=== PATIENT | female | born 1945 | race Caucasian/White ===

== ENCOUNTER 2025-02-06 04:44 | Emergency (ER) | payer OTHER, SELFPAY ==
--- OUTSIDE RECORDS SUMMARY | 2025-02-06 04:47 | XMS REPORT | Continuity of Care Document ---
Author Name Unknown Address [address] [facility] [address] [place] [address] [facility] [place] Address [address] [facility] [address] [place] [address] Care Team Providers Care Dispatcher Radioactive Waste Disposal Name Role Phone AURE WOOD Primary Care Physician UnavailAURE Rushing Attending Clinician Unavailable Aure Fung Attending Clinician [phone] SKYLAR GARCIA Attending Clinician Shelly De La Torre DO Attending Clinician [phone] Rosaura Altamirano RN Attending Clinician UnaARIANE Clayton Attending Clinician Unavailable SHELLY ACOSTA Attending Clinician UnavailSHELLY Kwan Attending Clinician Unavailab Domi GARNICA, Tania Fields Attending Clinician Unavailcameron ble Doctor Unassigned, Miston Attending Clinician U leleailTROY Forbes Attending Clinician Unavailable Troy Landis Attending Clinician [phone] Unknown, Attending Attending Clinician UnavailGovind Correa PA-C Attending Clinician [phone] GOVIND DAMON Attending Clinician Unavailable Aman Hurst - Thierno Attending Clinician Unavailable Aure Fung Attending Clinician [phone] AURE WOOD Admitting Clinician Unavailable Payers Payer Name Policy Type Policy Number Effective Date Expirati on Date Source [facility] [id number] 2023 00:00:00 Problems Condition Name Condition Details Condition Category Status Onset Date Resolution Date Last Treatment Date Treating Clinician Comments Source Degenerati ve disc disease, cervical Degenerati ve disc disease, cervical Disease Active 12-09 00:00: 00 [facility] Facial pain Facial pain Disease Active 11-22 00:00: 00 [facility] Cervicalgi a Cervicalgi a Disease Active 11-04 00:00: 00 [facility] Fall, initial encounter Fall, initial encounter Disease Active 11-04 00:00: 00 [facility] Onychomyco sis Onychomyco sis Disease Active 11-04 00:00: 00 [facility] Candidiasi s of skin Candidiasi s of skin Disease Active 2023-06 00:00: 00 [facility] BMI 30.0-30.9, adult BMI 30.0-30.9, adult Disease Active 2023-06 00:00: 00 [facility] Loss of appetite Loss of appetite Disease Active 01-17 00:00: 00 [facility] Pain of right hip Pain of right hip Disease Active 11-17 00:00: 00 [facility] Skin abnormalit ies Skin abnormalit ies Disease Active 11-17 00:00: 00 [facility] Arthritis Arthritis Disease Active 11-17 00:00: 00 [facility] Pain of right hip Pain of right hip Disease Active 11-17 00:00: 00 [facility] Essential hypertensi on Essential hypertensi on Disease Active 11-28 00:00: 00 [facility] Mild hyperchole sterolemia Mild hyperchole sterolemia Disease Active 11-28 00:00: 00 [facility] Anxiety and depression Anxiety and depression Disease Active 11-28 00:00: 00 [facility] Allergies, Adverse Reactions, Alerts Allergy Name Allergy Type Status Severity Reaction(s) Onset Date Inactive Date Treating Clinician Comments Source AMOXICIL LUPE DRUG INGREDI Active Swelling 12-27 00:00: 00 [facility] TIZANIDI NE DRUG INGREDI Active Unknown-Cmnt 12-27 00:00: 00 [facility] TERBINAF INE DRUG INGREDI Active Unknown-Cmnt 12-27 00:00: 00 [facility] Amoxicil lupe Propensi ty to adverse reaction s Active Swelling 12-27 00:00: 00 Lip swelling, trouble swallowin g, trouble sleeping [facility] Terbinaf ine Propensi ty to adverse reaction s Active Unknown - See comments 12-27 00:00: 00 [facility] Tizanidi ne Propensi ty to adverse reaction s Active Unknown - See comments 12-27 00:00: 00 [facility] IODINATE D CONTRAST MEDIA Drug Class Active High N/V 12-27 00:00: 00 [facility] Iodinate d Contrast Media Propensi ty to adverse reaction s Active Nausea and/or Vomiting 12-27 00:00: 00 [facility] NO KNOWN ALLERGIE S Drug Class Active [facility] Social History Social Habit Start Date Stop Date Quantity Comments Source Sexual orientation U [facility] ASSERTION Not [facility] Alcoholic beverage intake 2024-12-27 00:00:00 2024-12-27 00:00:00 0 /d [facility] History of Social function 2024-11-04 00:00:00 2024-11-04 00:00:00 [facility] Tobacco use and exposure 2023-11-18 00:00:00 2023-11-18 00:00:00 Smokeless tobacco non-user [facility] Sex assigned at 1945 00:00:00 1945 00:00:00 [facility] Smoking Status Start Date Stop Date Source Never smoked tobacco [facility] Medications Ordered Medication Name Filled Medication Name Start Date Stop Date Current Medication? Ordering Clinician Indication Dosage Frequency Signature (SIG) Comments Components Source predniSONE 50 mg tablet 12-28 00:00: 00 01-02 04:59 :00 Yes [id number] 50mg Take 1 tablet by mouth in the morning for [address] [facility] predniSONE (DELTASONE) tablet 50 mg 12-27 17:45: 00 12-27 17:41 :00 No 50mg 50 mg, Oral, ONCE, 1 dose, On Thu12/27/24 at 1245, Routine [facility] ciclopirox 8 % solution 12-09 00:00: 00 Yes [id number] Apply to area(s) at bedtime. Apply to Nails. [facility] OXYBUTYNIN 15 mg 24 hr tablet 12-05 00:00: 00 Yes [id number] 15mg TAKE 1 TABLET BY MOUTH IN THE MORNING [facility] methylPREDN ISolone (MEDROL, JAY,) 4 mg tablets 11-22 00:00: 00 11-28 04:59 :00 Yes [id number] Take by mouth SEE-INSTRU CTIONS for 5 days. follow package directions [facility] hydroCHLORO thiazide 25 mg tablet 11-20 00:00: 00 Yes [id number] 25mg TAKE 1 TABLET BY MOUTH IN THE MORNING [facility] TIZANIDINE 2 mg tablet 11-16 00:00: 00 11-22 00:00 :00 No [id number] TAKE 1 TABLET BY MOUTH EVERY 6 HOURS NEEDED FOR MODERATE PAIN [facility] terbinafine HCL 250 mg tablet 11-04 00:00: 00 12-27 00:00 :00 No [id number] 250mg Take 1 tablet by mouth in the morning. [facility] tiZANidine 2 mg tablet 11-04 00:00: 00 11-16 00:00 :00 No [id number] 2mg Take 1 tablet by mouth every 6 (six) hours as needed for Pain (scale 4-6). [facility] GABAPENTIN 100 mg capsule 10-04 00:00: 00 Yes [id number] TAKE 1 CAPSULE BY MOUTH IN THE MORNING AND AT NOON AND IN THE EVENING [facility] ROSUVASTATI N 10 mg tablet 4-15 00:00: 00 Yes [id number] 10mg TAKE 1 TABLET BY MOUTH AT BEDTIME [facility] atenoloL 25 mg tablet 2-24 00:00: 00 Yes [id number] 12.5mg Take 0.5 tablets by mouth in the morning. [facility] fluconazole (DIFLUCAN) 200 mg tablet 2023-06 00:00: 00 11-04 00:00 :00 No [id number] 2x a week for [address] [facility] oxybutynin 15 mg 24 hr tablet 2023-06 00:00: 00 12-05 00:00 :00 No [id number] 15mg TAKE 1 TABLET BY MOUTH IN THE MORNING [facility] nystatin 100,000 unit/gram powder 2023-06 00:00: 00 Yes [id number] Apply to area(s) 2 (two) times daily. [facility] hydroCHLORO thiazide 25 mg tablet 2023-06 00:00: 00 11-20 00:00 :00 No [id number] 25mg Take 1 tablet by mouth in the morning. [facility] atenoloL 25 mg tablet 2023-06 00:00: 00 08-15 00:00 :00 No [id number] 12.5mg Take 0.5 tablets by mouth in the morning. [facility] fluconazole (DIFLUCAN) 150 mg tablet 2023-06 00:00: 00 06-10 00:00 :00 No [id number] Once weekly for [address] [facility] nystatin 100,000 unit/gram cream 2023-06 00:00: 00 Yes [id number] Apply to area(s) 2 (two) times daily. [facility] nystatin 100,000 unit/gram powder 2023-06 00:00: 00 05-11 00:00 :00 No [id number] Apply to area(s) 2 (two) times daily. [facility] ATENOLOL 25 mg tablet 2023-06 1-13 00:00: 00 05-11 00:00 :00 No TAKE 1/2 TABLET BY MOUTH IN THE MORNING [facility] oxybutynin 15 mg 24 hr tablet 2023-06 0-11 00:00: 00 06-07 00:00 :00 No [id number] 15mg Take 1 tablet by mouth in the morning. [facility] rosuvastati n 10 mg tablet - 00:00: 00 10-04 00:00 :00 No [id number] 10mg Take 1 tablet by mouth at bedtime. [facility] gabapentin 100 mg capsule 02-09 00:00: 00 10-04 00:00 :00 No [id number] 100mg Take 1 capsule by mouth in the morning and 1 capsule at noon and 1 capsule in the evening. [facility] atenoloL 25 mg tablet 8-13 00:00: 00 05-04 00:00 :00 No 12.5mg Take 0.5 tablets by mouth in the morning. [facility] oxybutynin 15 mg 24 hr tablet 6-18 00:00: 00 04-01 00:00 :00 No [id number] 15mg Take 1 tablet by mouth in the morning. [facility] hydroCHLORO thiazide 25 mg tablet 29 00:00: 00 05-11 00:00 :00 No [id number] 25mg Take 1 tablet by mouth in the morning. [facility] busPIRone 10 mg tablet 11-17 00:00: 00 12-18 04:59 :00 No [id number] 10mg Take 1 tablet by mouth 2 (two) times daily as needed (anxiety) for up to [address] [facility] DICLOFENAC 50 mg EC tablet 0 9-10 00:00: 00 11-22 00:00 :00 No [id number] TAKE ONE TABLET BY MOUTH TWICE A DAY WITH MEALS [facility] ESCITALOPRA M OXALATE 20 mg tablet 11-25 00:00: 00 05-11 00:00 :00 No TAKE ONE TABLET BY MOUTH DAILY [facility] ROSUVASTATI N 10 mg tablet 29 00:00: 00 02-09 00:00 :00 No TAKE ONE TABLET BY MOUTH AT BEDTIME [facility] ATENOLOL 25 mg tablet 2017-06 2-05 00:00: 00 02-01 00:00 :00 No TAKE ONE-HALF TABLET BY MOUTH DAILY [facility] hydroCHLORO thiazide 25 mg tablet 2017-06 0 00:00: 00 11-17 00:00 :00 No 25mg Take 1 tablet by mouth daily. [facility] methylPREDN ISolone (MEDROL, JAY,) 4 mg tablets 11-28 00:00: 00 05-11 00:00 :00 No 84mg Take 21 tablets by mouth SEE-INSTRU CTIONS. follow package directions [facility] tiZANidine (ZANAFLEX) 4 mg tablet 11-28 00:00: 00 05-11 00:00 :00 No 4mg Take 1 tablet by mouth every 8 (eight) hours as needed for Pain (scale 4-6). [facility] Immunizations Ordered Immunization Name Filled Immunization Name Date Status Comments Source Pneumococcal 20 Conjugate, PCV20 (Prevnar 20) 2024-08-15 00:00:00 Completed Influenza, adjuvanted, trivalent, PF (FLUAD) 2024-05-11 00:00:00 Completed [facility] Influenza, High-Dose, Trivalent, PF (FLUZONE) 2022-05-13 00:00:00 Completed Vital Signs Vital Name Observation Time Observation Value Comments S marlon Systolic blood pressure 2024-12-27 17:30:00 134 mm[Hg] [facility] Diastolic blood pressure 2024-12-27 17:30:00 66 mm[Hg] [facility] Heart rate 2024-12-27 17:30:00 79 /min [facility] Body temperature 2024-12-27 17:30:00 37.11 Erin [facility] Respiratory rate 2024-12-27 17:30:00 18 /min [facility] Body height 2024-12-27 17:30:00 154.9 cm Univ [facility] Body weight 2024-12-27 17:30:00 75.751 kg Univ [facility] BMI 2024-12-27 17:30:00 31.55 kg/m2 [facility] Oxygen saturation in Arterial blood by Pulse oximetry 2024-12-27 17:30:00 100 /min [facility] Systolic blood pressure 2024-12-27 14:27:00 149 mm[Hg] [facility] Diastolic blood pressure 2024-12-27 14:27:00 74 mm[Hg] [facility] Heart rate 2024-12-27 14:25:00 88 /min [facility] Body temperature 2024-12-27 14:25:00 36.89 Erin [facility] Respiratory rate 2024-12-27 14:25:00 16 /min [facility] Body height 2024-12-27 14:25:00 154.9 cm Univ [facility] Body weight 2024-12-27 14:25:00 75.751 kg [facility] BMI 2024-12-27 14:25:00 31.55 kg/m2 [facility] Oxygen saturation in Arterial blood by Pulse oximetry 2024-12-27 14:25:00 98 /min [facility] Systolic blood pressure 2024-12-09 14:20:00 130 mm[Hg] [facility] Diastolic blood pressure 2024-12-09 14:20:00 76 mm[Hg] [facility] Heart rate 2024-12-09 14:20:00 94 /min [facility] Body height 2024-12-09 14:20:00 154.9 cm Univ [facility] Body weight 2024-12-09 14:20:00 76.114 kg Univ [facility] BMI 2024-12-09 14:20:00 31.71 kg/m2 Univ [facility] Oxygen saturation in Arterial blood by Pulse oximetry 2024-12-09 14:20:00 96 /min [facility] Systolic blood pressure 2024-12-02 13:00:00 115 mm[Hg] [facility] Diastolic blood pressure 2024-12-02 13:00:00 74 mm[Hg] [facility] Heart rate 2024-12-02 13:00:00 77 /min [facility] Body temperature 2024-12-02 13:00:00 36.06 Erin [facility] Respiratory rate 2024-12-02 13:00:00 16 /min [facility] Oxygen saturation in Arterial blood by Pulse oximetry 2024-12-02 13:00:00 96 /min [facility] Body height 2024-12-02 11:56:00 [facility] 2024-12-02 11:56:00 74.39 kg Univ [facility] BMI 2024-12-02 11:56:00 30.99 kg[facility]m2 [facility] Systolic blood pressure 2024-11-22 18:36:00 119 mm[Hg] [facility] Diastolic blood pressure 2024-11-22 18:36:00 70 mm[Hg] [facility] Heart rate 2024-11-22 18:36:00 73 /min [facility] Body temperature 2024-11-22 18:36:00 36.94 Erin [facility] Respiratory rate 2024-11-22 18:36:00 18 /min [facility] Body height 2024-11-22 18:36:00 154.9 cm [facility] Body weight 2024-11-22 18:36:00 75.751 kg Univ [facility] BMI 2024-11-22 18:36:00 31.55 kg/m2 [facility] Oxygen saturation in Arterial blood by Pulse oximetry 2024-11-22 18:36:00 95 /min [facility] Systolic blood pressure 2024-11-04 19:13:00 128 mm[Hg] [facility] Diastolic blood pressure 2024-11-04 19:13:00 78 mm[Hg] [facility] Heart rate 2024-11-04 19:13:00 70 /min [facility] Body temperature 2024-11-04 19:13:00 36.5 Erin [facility] Respiratory rate 2024-11-04 19:13:00 18 /min [facility] Body height 2024-11-04 19:13:00 154.9 cm Univ [facility] Body weight 2024-11-04 19:13:00 75.887 kg Univ [facility] BMI 2024-11-04 19:13:00 31.61 kg/m2 Univ [facility] Oxygen saturation in Arterial blood by Pulse oximetry 2024-11-04 19:13:00 99 /min [facility] Systolic blood pressure 2024-10-26 15:53:00 138 mm[Hg] [facility] Diastolic blood pressure 2024-10-26 15:53:00 79 mm[Hg] [facility] Heart rate 2024-10-26 15:53:00 76 /min [facility] Body temperature 2024-10-26 15:53:00 36.67 Erin [facility] Respiratory rate 2024-10-26 15:53:00 17 /min [facility] Body height 2024-10-26 15:53:00 154.9 cm Univ [facility] Body weight 2024-10-26 15:53:00 74.844 kg [facility] BMI 2024-10-26 15:53:00 31.18 kg/m2 Univ [facility] Oxygen saturation in Arterial blood by Pulse oximetry 2024-10-26 15:53:00 98 /min [facility] Systolic blood pressure 2024-10-02 20:10:00 137 mm[Hg] [facility] Diastolic blood pressure 2024-10-02 20:10:00 80 mm[Hg] [facility] Heart rate 2024-10-02 20:10:00 86 /min [facility] Body temperature 2024-10-02 20:10:00 36.56 Erin [facility] Respiratory rate 2024-10-02 20:10:00 17 /min [facility] Body height 2024-10-02 20:10:00 162.6 cm Univ [facility] Body weight 2024-10-02 20:10:00 73.029 kg Univ [facility] BMI 2024-10-02 20:10:00 27.64 kg/m2 Univ [facility] Oxygen saturation in Arterial blood by Pulse oximetry 2024-10-02 20:10:00 98 /min [facility] Systolic blood pressure 2024-08-15 19:14:00 121 mm[Hg] [facility] Diastolic blood pressure 2024-08-15 19:14:00 57 mm[Hg] [facility] Heart rate 2024-08-15 19:14:00 69 /[facility] Body temperature 2024-08-15 19:14:00 35.89 Erin [facility] Body height 2024-08-15 19:14:00 154.9 cm Univ [facility] Body weight 2024-08-15 19:14:00 73.573 kg [facility] BMI 2024-08-15 19:14:00 30.65 kg/m2 [facility] Oxygen saturation in Arterial blood by Pulse oximetry 2024-08-15 19:14:00 96 /min [facility] Systolic blood pressure 2024-06-10 19:06:00 128 mm[Hg] [facility] Diastolic blood pressure 2024-06-10 19:06:00 63 mm[Hg] [facility] Heart rate 2024-06-10 19:06:00 79 /min [facility] Body temperature 2024-06-10 19:06:00 36.89 Erin [facility] Respiratory rate 2024-06-10 19:06:00 18 /min [facility] Body height 2024-06-10 19:06:00 [facility].9 [facility] weight 2024-06-10 19:06:00 73.392 kg [facility] BMI 2024-06-10 19:06:00 30.57 kg/m2 [facility] Oxygen saturation in Arterial blood by Pulse oximetry 2024-06-10 19:06:00 97 /min [facility] Systolic blood pressure 2024-05-11 19:36:00 124 mm[Hg] [facility] Diastolic blood pressure 2024-05-11 19:36:00 70 mm[Hg] [facility] Heart rate 2024-05-11 19:36:00 79 /min [facility] Body temperature 2024-05-11 19:36:00 36.33 Erin [facility] Respiratory rate 2024-05-11 19:36:00 18 /min [facility] Body height 2024-05-11 19:36:00 154.9 cm [facility] Body weight 2024-05-11 19:36:00 71.895 kg [facility] BMI 2024-05-11 19:36:00 29.95 kg/m2 [facility] Oxygen saturation in Arterial blood by Pulse oximetry 2024-05-11 19:36:00 99 /min [facility] Systolic blood pressure 2024-05-05 17:14:00 130 mm[Hg] [facility] Diastolic blood pressure 2024-05-05 17:14:00 66 mm[Hg] [facility] Heart rate 2024-05-05 17:14:00 75 /[facility] Body temperature 2024-05-05 17:14:00 36.11 Erin [facility] Respiratory rate 2024-05-05 17:14:00 16 /min [facility] Body weight 2024-05-05 17:14:00 72.167 kg [facility] BMI 2024-05-05 17:14:00 30.06 kg/m2 [facility] Oxygen saturation in Arterial blood by Pulse oximetry 2024-05-05 17:14:00 97 /min [facility] Systolic blood pressure 2024-01-18 18:39:00 131 mm[Hg] [facility] Diastolic blood pressure 2024-01-18 18:39:00 74 mm[Hg] [facility] Heart rate 2024-01-18 18:39:00 81 /min [facility] Body temperature 2024-01-18 18:39:00 36.78 Erin [facility] Respiratory rate 2024-01-18 18:39:00 18 /min [facility] Body height 2024-01-18 18:39:00 154.9 cm [facility] Body weight 2024-01-18 18:39:00 75.07 kg [facility] BMI 2024-01-18 18:39:00 31.27 kg/m2 [facility] Oxygen saturation in Arterial blood by Pulse oximetry 2024-01-18 18:39:00 97 /min [facility] Systolic blood pressure 2023-11-18 15:03:00 117 mm[Hg] [facility] Diastolic blood pressure 2023-11-18 15:03:00 69 mm[Hg] [facility] Heart rate 2023-11-18 15:02:00 84 /min [facility] Body temperature 2023-11-18 15:02:00 36.94 Erin [facility] Respiratory rate 2023-11-18 15:02:00 18 /min [facility] Body height 2023-11-18 15:02:00 154.9 cm [facility] Body weight 2023-11-18 15:02:00 76.204 kg [facility] BMI 2023-11-18 15:02:00 31.74 kg/m2 [facility] Oxygen saturation in Arterial blood by Pulse oximetry 2023-11-18 15:02:00 99 /min [facility] Procedures Procedure Date / Time Performed Performing Clinician Source XR FACIAL BONES 3+ VW 2024-11-22 19:22:03 Aure Wood [facility] XR CERVICAL SPINE 2 VW 2024-11-22 19:21:32 Bailey Wood [facility] DEXA AXIAL (HIP AND SPINE) 2024-09-15 18:27:19 Aure Wood [facility] PNEUMOCOCCAL 20 CONJUGATE (PREVNAR 20) VACCINE 2024-08-15 19:17:47 Aure Wood [facility] FLU VACC(),65+YR,0 .5 ML,IM,ADJUVANTED,TIV(FL UAD) 2024-05-11 19:46:21 Aure Wood [facility] THYROID STIMULATING HORMONE 2024-01-18 19:17:00 Aure Wood [facility] COMP. METABOLIC PANEL ([id number]) 2024-01-18 19:17:00 Aure Wood [facility] LIPID PANEL ([id number])(TOTAL CHOLESTEROL, TRIGLYCERIDES, HDL) 2024-01-18 19:17:00 Aure Wood [facility] HCV ANTIBODY 2024-01-18 19:17:00 Aure Wood [facility] HELICOBACTER PYLORI, BREATH TEST 2024-01-18 19:17:00 Aure Wood [facility] Encounters Start Date/Time End Date/Time Encounter Type Admission Type Attending [facility] Care Facility Care Department Encounter ID Source 2025-01-09 00:00:00 2025-01-10 17:49:09 Telephone Aure Wood [facility] [id number] 350.1.13.10 [id number] [facility] 2025-01-09 14:00:00 2025-01-09 14:00:00 Outpatient SKYLAR CHOPRA [facility] [id number] [facility] 2024-12-27 12:36:00 2024-12-27 12:54:00 Emergency X Shelly Acosta [facility] 1..840.114 350.1.13.10 4.2.7.2.[id number] [facility] 2024-12-27 00:00:00 2024-12-27 12:02:09 Nurse Triage Rosaura Altamirano Priscilla [facility] ([facility]) [id number] 350.1.13.10 [id number] [facility] 2024-12-27 09:15:00 2024-12-27 09:44:42 Urgent Care R ARIANE FERRER [facility] [id number] 350.1.13.10 [id number] [facility] 2024-11-23 00:00:00 2024-12-24 18:17:14 Patient Secure Aure Cash [facility] [id number] 350.1.13.10 [id number] [facility] 2024-11-07 00:00:00 2024-12-10 18:23:51 Patient Secure Aure Cash [facility]IS[facility] [id number] 350.1.13.10 [id number] [facility] 2024-11-07 00:00:00 2024-12-10 18:23:43 Patient Secure Aure Cash [facility] [id number] 350.1.13.10 4.2.7.2.[id number] [facility] 2024-12-09 09:00:00 2024-12-09 09:34:10 Office Visit R AURE WOOD [facility] [id number] 350.1.13.10 4.2.7.2.[id number] [facility] 2024-12-03 00:00:00 2024-12-05 07:43:03 Refill Aure Wood [facility] [id number] 350.1.13.10 4.2.7.2.[id number] [facility] 2024-12-02 06:58:00 2024-12-02 09:24:00 Emergency X SHELLY AOCSTA, SHELLY [facility] ERT [id number] [facility] 2024-11-29 13:30:00 2024-11-29 13:30:00 Outpatient AURE WOOD [facility] [id number] [facility] 2024-11-23 00:00:00 2024-11-25 09:11:55 Patient Secure Msg Aure Wood [facility] [id number] 350.1.13.10 4.2.7.2.[id number] [facility] 2024-11-24 00:00:00 2024-11-25 08:34:36 Nurse Triage Tania Raza [facility] [facility]) 1.20.114 350.1.13.10 4.2.7.2.[id number] [facility] 2024-11-22 14:03:00 2024-11-22 14:03:00 Hospital Encounter R Aure Wood [facility] CARISSA?[facility] 1.2840.114 350.1.13.10 4.2.7.2.[id number] [facility] 2024-11-22 14:03:00 2024-11-22 14:03:00 Hospital Encounter R Aure Wood [facility] CARISSA?[facility] 1.2840.114 350.1.13.10 4.2.7.2.[id number] [facility] 2024-11-22 13:30:00 2024-11-22 14:02:31 Office Visit R AURE WOOD [facility] JIM FERRER?[facility] 1.2840.114 350.1.13.10 4.2.7.2.[id number] [facility] 2024-11-19 00:00:00 2024-11-20 17:39:16 [facility] 1.2840.114 350.1.13.10 4.2.7.2.[id number] [facility] 2024-11-18 00:00:00 2024-11-18 10:34:14 Telephone Aure Wood [facility] JIM FERRER?[facility] 1.2840.114 350.1.13.10 4.2.7.2.[id number] [facility] 2024-11-12 00:00:00 2024-11-16 09:17:19 [facility]ure Hoff [facility] 1.284.114 350.1.13.10 4.2.7.2.[id number] [facility] 2024-11-11 00:00:00 2024-11-11 11:57:57 Telephone Aure Wood [facility] JIM FERRER?[facility] 1.284.114 350.1.13.10 4.2.7.2.[id number] [facility] 2024-11-08 00:00:00 2024-11-08 07:45:10 Patient Secure Msg Doctor Unassigned, Miston Doctor Unassigned, Miston [facility] JIM FERRER?[facility] 1.284.114 350.1.13.10 4.2.7.2.[id number] [facility] 2024-11-07 07:30:00 2024-11-07 08:48:59 Custodial Aide [facility] 1.84.114 350.1.13.10 4.2.7.2.[id number] [facility] 2024-11-04 14:00:00 2024-11-04 14:37:47 Office Visit Aure Bravo [facility] CARISSA?[facility] 1.84.114 350.1.13.10 4.2.7.2.[id number] [facility] 2024-11-04 14:00:00 2024-11-04 14:00:00 Outpatient Neno BYRDAURE Rea [facility] [id number] [facility] 2024-10-26 10:40:00 2024-10-26 11:42:05 Outpatient R TROY DUMONT [facility] [id number] [facility] 2024-10-26 10:40:00 2024-10-26 11:42:05 Urgent Care Troy Dumont, Attending [facility] 1.84.114 350.1.13.10 4.2.7.2.[id number] [facility] 2024-10-04 00:00:00 2024-10-04 14:38:05 Refill Aure Wood [facility] CARISSA?[facility] 1.84.114 350.1.13.10 4.2.7.2.[id number] [facility] 2024-10-02 14:40:00 2024-10-02 15:32:48 Outpatient R TROY DUMONT [facility] [id number] [facility] 2024-10-02 14:40:00 2024-10-02 15:32:48 Urgent Care Troy Dumont Unknown, Attending [facility] MEDICAL OFFICE BUILDING 1.840.114 350.1.13.10 4.2.7.2.[id number] [facility] 2024-09-16 00:00:00 2024-09-16 15:13:56 Patient Secure Msg Doctor Unassigned, Miston Doctor Unassigned, Miston [facility] 1.840.114 350.1.13.10 4.2.7.2.[id number] [facility] 2024-09-15 12:54:17 2024-09-15 23:59:00 Outpatient R AURE WOOD [facility] [id number] [facility] 2024-09-15 12:54:17 2024-09-15 23:59:00 Hospital Encounter Aure Wood [facility] 1.840.114 350.1.13.10 4.2.7.2.[id number] [facility] 2024-09-01 11:30:00 2024-09-01 11:30:00 Outpatient R AURE WOOD [facility] [id number] [facility] 2024-08-15 13:00:00 2024-08-15 13:38:15 Outpatient R AURE WOOD [facility] [id number] [facility] 2024-08-15 13:00:00 2024-08-15 13:38:15 Office Visit Aure Wood [facility] CARISSA?[facility] MED[facility] OFFICE BUILDING 1..840.114 350.1.13.10 4.2.7.2.[id number] [facility] 2024-07-29 00:00:00 2024-08-01 11:49:15 Refill Aure Wood [facility] CARISSA?[facility] 1.2.840.114 350.1.13.10 4.2.7.2.[id number] [facility] 2024-06-10 13:00:00 2024-06-10 13:20:20 Outpatient R AURE WOOD [facility] [id number] [facility] 2024-06-10 13:00:00 2024-06-10 13:20:20 Office Visit Aure Wood [facility] CARISSA?[facility] 1.2.840.114 350.1.13.10 4.2.7.2.[id number] [facility] 2024-06-07 00:00:00 2024-06-07 11:04:45 Refill Nina [facility] CARISSA?[facility] MED[facility] BU[facility] 1..840.114 350.1.13.10 4.2.7.2.[id number] [facility] 2024-05-20 00:00:00 2024-05-23 10:33:38 Telephone Govind Damon [facility] 1..840.114 350.1.13.10 4.2.7.2.[id number] [facility] 2024-05-11 13:30:00 2024-05-11 14:02:42 Outpatient R AURE WOOD [facility] [id number] [facility] 2024-05-11 13:30:00 2024-05-11 14:02:42 [facility] 1.2.840.114 350.1.13.10 4.2.7.2.[id number] [facility] 2024-05-06 00:00:00 2024-05-06 11:26:02 Telephone Govind Damon [facility] CARISSA?[facility] 1.2.840.114 350.1.13.10 4.2.7.2.[id number] [facility] 2024-05-05 11:20:00 2024-05-05 11:35:28 Outpatient R GOVIND DAMON [facility] [id number] [facility] 2024-05-05 11:20:00 2024-05-05 11:35:28 Urgent Care Govind Damon Unknown, Attending [facility] BU[facility] 1.2.840.114 350.1.13.10 4.2.7.2.[id number] [facility] 2024-05-04 00:00:00 2024-05-04 11:02:08 Refill Nina Aure [facility] CARISSA?[facility] 1..840.114 350.1.13.10 4.2.7.2.[id number] [facility] 2024-04-01 00:00:00 2024-04-01 15:55:16 Refill Nina Aure [facility] CARISSA?[facility] 1..840.114 350.1.13.10 4.2.7.2.[id number] [facility] 2024-02-08 00:00:00 2024-02-10 14:32:28 Telephone Nina [facility] 1.2.840.114 350.1.13.10 4.2.7.2.[id number] [facility] 2024-02-10 00:00:00 2024-02-10 14:03:53 Telephone Aure Wood [facility] 1.840.114 350.1.13.10 4.2.7.2.[id number] [facility] 2024-02-02 00:00:00 2024-02-02 11:09:33 Refill EnriqueAure rea [facility] 1.840.114 350.1.13.10 4.2.7.2.[id number] [facility] 2024-01-18 14:00:00 2024-01-18 14:19:20 Custodial Aide Visit Lab, Aure Philip, Aman Pa [facility] 1.840.114 350.1.13.10 4.2.7.2.[id number] [facility] 2024-01-18 14:00:00 2024-01-18 14:00:00 Outpatient R ENRIQUEIMAN ReaIE [facility] [id number] [facility] 2024-01-18 13:30:00 2024-01-18 14:00:00 Office Visit NinaAure [facility] 1.840.114 350.1.13.10 4.2.7.2.[id number] [facility] 2023-12-17 00:00:00 2023-12-18 16:44:45 Telephone EnriqueAure rea [facility] 1.840.114 350.1.13.10 4.2.7.2.[id number] [facility] 2023-12-17 00:00:00 2023-12-17 10:43:09 Letter (Out) Nina Aure [facility] 1.2840.114 350.1.13.10 4.2.7.2.[id number] [facility] 2023-12-08 00:00:00 2023-12-08 15:26:44 Telephone Aure Wood [facility] CARISSA?[facility] 1.2.840.114 350.1.13.10 4.2.7.2.[id number] [facility] 2023-12-07 00:00:00 2023-12-07 14:08:15 Letter (Out) [facility] 1.2.840.114 350.1.13.10 4.2.7.2.[id number] [facility] 2023-11-19 00:00:00 2023-11-20 10:06:08 Telephone Aure Wood [facility] CARISSA?[facility] 1.2.840.114 350.1.13.10 4.2.7.2.[id number] [facility] 2023-11-18 10:00:00 2023-11-18 10:30:00 Office Visit Aure Wood [facility] CARISSA?[facility] 1.2.840.114 350.1.13.10 4.2.7.2.[id number] [facility] 2023-11-18 10:00:00 2023-11-18 10:00:00 Outpatient R AURE WOOD [facility] [id number] [facility] Results Test Description Test Time Test Comments Results Resul t Comments Source XR Facial bones 3+ vw 2024-11-22 19:44:04 EXAM: XR FACIAL BONES 3+ VW HISTORY: pain , hx of fall TECHNIQUE: Frontal and lateral views of the facial bones were obtained. COMPARISON: None. [facility] XR Cervical spine 2 vw 2024-11-22 19:41:17 EXAMINATION: ?XR CERVICAL SPINE 2 VW HISTORY: pain TECHNIQUE: AP and lateral as well as odontoid views of the cervical spinewere obtained. COMPARISON: 11/29/2015 [facility] DEXA AXIAL (HIP AND SPINE) 2024-09-15 18:32:17 DEXA ? ? DEXA AXIAL (HIP AND SPINE) HISTORY: Female 79 years post menopause. COMPARISON: ?None TECHNIQUE: Bone densitometry of the lumbar spine and hip was performed on a [employer] system. ? WHO-definitions ?T score ?normal ? T >/= - 1 SD around the mean ?osteopenia ?-1 > T > -2.5 SD below the mean ? ? osteoporosis ? ? ? T >/= -2.5 SD below the mean ? Fracture risk doubles for each 1.5 SD below the mean. ? FINDINGS: 1. Lumbar spine L1-L4: T Score 3.4. ?Bone mineral density (BMD) of 1.610g/cm^2. 2. Left Hip: T Score is -0.6. ?Bone mineral density of 0.935 g/cm^2. Left Neck: T Score -0.8. ?Bone mineral density of 0.932 g/cm^2. [facility] [id number] 22:48:32 * Test Item Value Reference Range Interpretation Comme nts TSH (test code = 8310619890) 2.15 0.45-4.70 Lab Interpretation (test cod e = 44994-5) Normal [facility] (10098)2024-01-18 22:20:27* Test Item Value Reference Range Interpretation Comme nts NA (test code = 3053091642) 140 mmol/L 135-145 K (test code = 1922245156) 3.8 mmol/L 3.5-5.0 CL (test code = 4307142453) 103 mmol/L 98-108 CO2 TOTAL (test code = 5998566786) 29 mmol/L 23-31 AGAP (test code = 0013878510) 8 2-16 BUN (test code = 9176120297) 15 mg/dL 7-23 GLUCOSE (test code = 2422828722) 101 mg/dL 70-110 CREATININE (test code = 2160-0) 0.71 mg/dL 0.50-1.04 TOTAL BILI (test code = 7218991714) 0.8 mg/dL 0.1-1.1 CALCIUM (test code = 9823834396) 10.0 mg/dL 8.6-10.6 T PROTEIN (test code = 0830555593) 7.1 g/dL 6.3-8.2 ALBUMIN (test code = 2853999106) 4.0 g/dL 3.5-5.0 ALK PHOS (test code = 7593569655) 102 U/L 34-122 ALTv (test code = 1742-6) 22 U/L 5-35 AST(SGOT) (test code = 6436102881) 33 U/L 13-40 eGFR (test code = 40031-9) 87.7 mL/min/1.73m2 CKD-EPI eGFR (20 21). Assuming creatinine has been stable day-to-day for at least three months, the eGFR indicates Category G2 (60 - 89 mL/min/1.73 m2) [facility] (45843)(Total Cholesterol, Triglycerides, HDL)2024-01-18 22:20:27* Test Item Value Reference Range Interpretation Comme nts CHOL (test code = 5015814893) 136 mg/dL 120-200 HDL (test code = 9915651132) 46 mg/dL >=50 L HDLC RATIO (test code = 0938160132) 3.0 <=4.5 TRIG (test code = 5837120594) 90 mg/dL 30-170 LDL CHOL (test code = 78060-2) 72 mg/dL <=160 VLDL (test code = 5616723933) 18 mg/dL 5-60 Lab Interpretation (test cod e = 57354-4) Abnormal [facility] Notes Date/Time Note Provider Source 2025-01-12 11:13:55 Spoke to patient who states that her dentist was able to get her in yesterday due to a cancellation and she will have her tooth taken out. She states that she is following up with them and will call us if she needs anything else. Marianna Sharp RN [facility] 2025-01-11 08:55:44 ATC. Left detailed message to go to UC or call to schedule OV. Duyen Dasilva [facility] 2025-01-10 17:48:54 Advise UC or OV [facility] 2025-01-09 07:50:28 Please review and advise Duyen Dasilva MELTER CLERK [facility] 2025-01-09 07:10:18 Megan Gonzalez is a 79 year old female Patient is calling stating that she is having pain on the bottom right wisdom tooth. Patient states that it is broken and and infected and she is waiting to see the dentist at the end of the month. Patient would like an antibiotic if possible. [phone] Please advise. Emely Horner [facility] 2024-12-27 12:42:56 Patient given printed and verbal discharge instructions. Pt and/or family understanding of instructions, pt stable upon discharge, and encouraged to follow up with pcp and/or specialist. Advised to seek medical attention for new/prolonged/worsening of symptoms. [facility] 2024-12-27 12:26:31 Megan Gonzalez is a 79 year old female arrived to ED via personal means with CC of possible allergic reaction to amoxicillin 500mg, lips were swelling and warm, high blood pressure and difficulty swallowing yesterday. Today symptoms have subsided, patient stopped taking abx yesterday. [facility] 2024-12-27 12:20:00 [facility] Emergency Department Note Patient Name: Megan Gonzalez Date of : 1945 79 year old female Treatment Room: [facility] Primary Care Physician: Nina Sarkar Patient Escorted by: Self [9] Mode of Arrival: Personal means [1] EMS Treatment Prior to ED Arrival: Travel and Exposure Screening: Symptoms Does patient have any of these symptoms?: (not recorded) Exposure Screening Has patient had contact with someone with a communicable disease in the last month?: (not recorded) Diseases exposed to:: (not recorded) Is Patient ?: (not recorded) Exposure Date: (not recorded) Chief Complaint: Chief Complaint Patient presents with Allergic reaction History of Present Illness: History of Present Illness The patient presents from home for evaluation for possible allergic reaction to amoxicillin. She reports she was prescribed amoxicillin on December 22 for a dental infection. She has been taking it 3 times a day as prescribed. She reports she has noticed her lips to be swollen and feels like they are burning on the inside. Therefore she stopped taking her amoxicillin yesterday after taking the morning and afternoon dose. She feels like the swelling in her lips have improved since she stopped taking the amoxicillin. She denies any previous reactions to amoxicillin but has had reactions to clindamycin in the past. No throat swelling or tightness. No change in her voice. No shortness of breath. She did go to urgent care today who advised her to come to the ER for evaluation. She reports she does have an appointment later this month with an oral surgeon to see about an extraction of that tooth. Here for evaluation. Past Medical History/Immunizations: Past Medical History: Diagnosis Date Arthritis Depression Hyperlipidemia Hypertension Allergies: Allergies Allergen Reactions Iodinated Contrast Media Nausea and/or Vomiting Amoxicillin Swelling Lip swelling, trouble swallowing, trouble sleeping Terbinafine Unknown - See comments Tizanidine Unknown - See comments Past Social History: Tobacco Use Never smoked or used smokeless tobacco. Alcohol Use No. Drug Use No. Past Surgical History: Past Surgical History: Procedure Laterality Date JOINT SURGERY Right Review of Systems: Review of Systems Constitutional: Negative for chills and fever. HENT: Negative for congestion. Respiratory: Negative for cough and shortness of breath. Cardiovascular: Negative for chest pain. Gastrointestinal: Negative for abdominal pain and vomiting. Genitourinary: Negative for dysuria. Musculoskeletal: Negative for arthralgias, neck pain and neck stiffness. Skin: Negative for wound. Psychiatric/Behavioral: Negative for agitation. Endocrine: Negative for goiter. Physical Exam: Physical Exam ED Triage Vitals [12/27/24 1230] Weight 75.8 kg (167 lb) Actual or estimated Estimated by patient/family report Height 1.549 m (5' 1") BP 134/66 Pulse 79 Resp 18 Temp 37.1 ?C (98.8 ?F) Temp source Oral SpO2 100 % Measured on Room air Physical Exam Vitals and nursing note reviewed. Constitutional: Appearance: Normal appearance. She is normal weight. HENT: Head: Normocephalic and atraumatic. Mouth/Throat: Mouth: Mucous membranes are moist. Pharynx: Oropharynx is clear. No oropharyngeal exudate or posterior oropharyngeal erythema. Comments: No swelling or erythema of her posterior pharynx. She is able to control her secretions without difficulty. No swelling or erythema is noted to her lips. Cardiovascular: Rate and Rhythm: Normal rate. Pulmonary: Effort: Pulmonary effort is normal. No respiratory distress. Breath sounds: Normal breath sounds. No wheezing or rhonchi. Abdominal: General: There is no distension. Palpations: Abdomen is soft. Musculoskeletal: Cervical back: Neck supple. Skin: General: Skin is warm and dry. Neurological: General: No focal deficit present. Mental Status: She is alert and oriented to person, place, and time. Radiology: No orders to display Lab Results: Lab Results - No data to display EKG: If EKG completed, see Procedure Note. Orders and Treatments: No orders of the defined types were placed in this encounter. Orders Placed This Encounter Medications predniSONE (DELTASONE) tablet 50 mg predniSONE 50 mg tablet First Provider Eval: ED Events Date/Time Event User Comments 12/27/24 1225 Medical Screening Begins SHELLY ACOSTA DO -- 12/27/24 1225 First Provider Evaluation SHELLY ACOSTA DO -- ED COURSE Diagnosis/Impression as of 12/27/24 1239 Allergic reaction, initial encounter Results Procedures: Procedures MDM: Assessment & Plan Medical Decision Making The patient presents from home for evaluation for possible allergic reaction to amoxicillin. She reports she was prescribed amoxicillin on December 22 for a dental infection. She has been taking it 3 times a day as prescribed. She reports she has noticed her lips to be swollen and feels like they are burning on the inside. Therefore she stopped taking her amoxicillin yesterday after taking the morning and afternoon dose. She denies any previous reactions to amoxicillin but has had reactions to clindamycin in the past. No throat swelling or tightness. No change in her voice. No shortness of breath. She did go to urgent care today who advised her to come to the ER for evaluation. She reports does have an appointment later this month with an oral surgeon to see about an extraction of that tooth. Vital signs are stable in the ER. There is no swelling noted to her lips. Her airway is patent. There is no swelling of her posterior pharynx and no erythema is noted. She is able to speak in full and complete sentence without difficulty and is able to control her secretions. Recommend the patient stop taking amoxicillin. Will prescribe her prednisone to help with her lip swelling. She remained stable here in the ER and is okay for discharge home with PCP follow-up in 1 week. Problems Addressed: Allergic reaction, initial encounter: acute illness or injury Risk OTC drugs. Prescription drug management. Flowsheet Documentation: Scoring Tools: No data recorded Disposition/Condition: ED Disposition ED Disposition Discharge Condition Stable Comment -- Discharge Medications: Patient's Medications START taking these medications PREDNISONE 50 MG TABLET Take 1 tablet by mouth in the morning for 4 days. CONTINUE taking these medications which have NOT CHANGED ATENOLOL 25 MG TABLET Take 0.5 tablets by mouth in the morning. CICLOPIROX 8 % SOLUTION Apply to area(s) at bedtime. Apply to Nails. GABAPENTIN 100 MG CAPSULE TAKE 1 CAPSULE BY MOUTH IN THE MORNING AND AT NOON AND IN THE EVENING HYDROCHLOROTHIAZIDE 25 MG TABLET TAKE 1 TABLET BY MOUTH IN THE MORNING NYSTATIN 100,000 UNIT/GRAM CREAM Apply to area(s) 2 (two) times daily. NYSTATIN 100,000 UNIT/GRAM POWDER Apply to area(s) 2 (two) times daily. OXYBUTYNIN 15 MG 24 HR TABLET TAKE 1 TABLET BY MOUTH IN THE MORNING ROSUVASTATIN 10 MG TABLET TAKE 1 TABLET BY MOUTH AT BEDTIME START taking Modified Medications as Prescribed No medications on file STOP taking these medications No medications on file Follow-up: Electronically signed by: Shelly Acosta DO 12/27/24 1239 [facility] 2024-12-27 11:39:00 Regarding: Swollen lips, high blood pressures and rapid heart beat x today ----- Message from Patient Physician Assistant Surgery sent at 12/27/2024 11:39 AM CDT ----- Swollen lips, high blood pressures and rapid heart beat x today Rosaura Altamirano RN [facility] 2024-12-27 11:39:00 Patient calling with concerns that she just went to [facility] ER as advised by [facility] MD, and states that it was overcrowded, and the wait was too long. Patient verified her name and . Patient was advised by this Nurse that this Nurse could not go against provider's advice for the patient to be seen in the ER. Patient was educated on the need to be seen as soon as possible in regards to her current dental infection and the need to be closely monitored when given a new medication per Ariane Ferrer MD's notes from the [facility]. Patient was educated on anaphylaxis concerns. Patient was also given additional resources of nearby emergency rooms locally. Patient prefers to go to a [facility] [place]. Patient was again advised to be seen in the [facility] ER as soon as possible. Patient agreed, and states, "Oh well I will just have to go and wait. I don't want to go against my doctor's advice." Patient was advised to call back if any questions or concerns arise. Patient verbalized understanding, and denies any further questions for this Nurse. Reason for Disposition General information question, no triage required and triager able to answer question Protocols used: Information Only Call - No [id number] Rosaura Altamirano RN 12/27/2024 12:00 PM [facility] 2024-12-04 20:49:33 Please review and sign if appropriate: Last office visit: 11/22/24 Next office visit: 12/09/24 Requested Prescriptions Pending Prescriptions Disp Refills OXYBUTYNIN 15 mg 24 hr tablet [Pharmacy Med Name: OXYBUTYNIN ER 15MG TABLETS] 90 tablet 1 Sig: TAKE 1 TABLET BY MOUTH IN THE MORNING Last refill date: 06/07/24 Notes: The encounter diagnosis was OAB (overactive bladder). Fabienne Martin LVN [facility] 2024-12-02 08:30:00 Pt discharged with diagnosis of L eye complaint. Printed and verbal instructions reviewed with and given to Pt. Pt verbalized understanding of teaching, and recommended follow-up. Denies questions or concerns at this time. Pt ambulatory w/ walker at discharge. Appears in no apparent distress. No ataxia noted. Isabella Khanna RN [facility] 2024-12-02 07:08:22 Pt had a fall in September and hit her head on R side and her glasses cut her head. Unable to brace herself. Vision is "a little hazy for 2-3 days, denies pain at this time, but occasionally has pain at 3-4 but it is brief. Had x-rays last week and there was no fractures, Nina under Dr. Jimenez mentioned possible CT due to Pt's Neck hurting. [facility] 2024-12-02 06:55:28 Patient states: "I had a fall. I've been going back and forth to the doctor. I felt something in my left eye. 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 No injury or trauma. No fevers or chills. No blurry vision. She does have a history of bilateral cataract repair in the past. She does wear glasses and has been with her. No eye pain. No drainage from her eye. She says when she looks in the mirror she is able to see something yellow and is concerned. Here for evaluation. Past Medical History/Immunizations: Past Medical History: Diagnosis Date Arthritis Depression Hyperlipidemia Hypertension Tetanus received in last 5 years: Unknown Childhood immunizations: Up-to-date Allergies: No Known Allergies Past Social History: Tobacco Use Never smoked or used smokeless tobacco. Alcohol Use No. Drug Use No. Past Surgical History: Past Surgical History: Procedure Laterality Date JOINT SURGERY Right Review of Systems: Review of Systems Constitutional: Negative for chills and fever. Eyes: Negative for photophobia, pain, discharge, redness and itching. Respiratory: Negative for cough. Cardiovascular: Negative for chest pain. Genitourinary: Negative for dysuria. Musculoskeletal: Negative for arthralgias, neck pain and neck stiffness. Neurological: Negative for dizziness. Psychiatric/Behavioral: Negative for agitation. Physical Exam: Physical Exam ED Triage Vitals [12/02/24 0656] Weight 74.4 kg (164 lb) Actual or estimated Estimated by patient/family report Height 1.549 m (5' 1") BP (!) 147/99 Pulse 92 Resp 16 Temp 37.1 ?C (98.8 ?F) Temp source Oral SpO2 100 % Measured on Room air Physical Exam Vitals and nursing note reviewed. Constitutional: Appearance: Normal appearance. HENT: Head: Normocephalic and atraumatic. Eyes: General: No scleral icterus. Right eye: No discharge. Left eye: No discharge. Extraocular Movements: Extraocular movements intact. Conjunctiva/sclera: Conjunctivae normal. Pupils: Pupils are equal, round, and reactive to light. Cardiovascular: Rate and Rhythm: Normal rate. Pulmonary: Effort: Pulmonary effort is normal. No respiratory distress. Abdominal: General: There is no distension. Musculoskeletal: General: Normal range of motion. Cervical back: Normal range of motion and neck supple. Skin: General: Skin is warm. Neurological: General: No focal deficit present. Mental Status: She is alert and oriented to person, place, and time. Radiology: No orders to display Lab Results: Lab Results - No data to display EKG: If EKG completed, see Procedure Note. Orders and Treatments: No orders of the defined types were placed in this encounter. No orders of the defined types were placed in this encounter. First Provider Eval: ED Events Date/Time Event User Comments 12/02/24 0717 Medical Screening Begins SHELLY ACOSTA DO -- 12/02/24 0717 First Provider Evaluation SHELLY ACOSTA DO -- ED COURSE Diagnosis/Impression as of 12/02/24 0818 Left eye complaint Results Procedures: Procedures MDM: Assessment & Plan Medical Decision Making The patient presents from home for evaluation for feeling like she has something yellow on her left eye since this morning. No injury or trauma. No fevers or chills. No blurry vision. She does have a history of bilateral cataract repair in the past. She does wear glasses and has been with her. No eye pain. No drainage from her eye. She says when she looks in the mirror she is able to see something yellow and is concerned. Vital signs are stable in the ER. Her extraocular's are intact. Her pupils are reactive bilaterally. She has no eye drainage bilaterally and no scleral icterus. No concern for corneal abrasion, conjunctivitis or foreign body. Will check visual acuity. 0818 - The patient is doing well here in the ER. Her visual acuity is 20/40 to the right eye, 20/30 to the left eye and 20/30 bilaterally. Recommend she follow-up with her eye doctor in the next 1 to 2 days. She remained stable here in the ER and is okay for discharge home with PCP follow-up. Problems Addressed: Left eye complaint: acute illness or injury Flowsheet Documentation: Scoring Tools: No data recorded Disposition/Condition: ED Disposition ED Disposition Discharge Condition Stable Comment -- Discharge Medications: Patient's Medications START taking these medications No medications on file CONTINUE taking these medications which have NOT CHANGED ATENOLOL 25 MG TABLET Take 0.5 tablets by mouth in the morning. GABAPENTIN 100 MG CAPSULE TAKE 1 CAPSULE BY MOUTH IN THE MORNING AND AT NOON AND IN THE EVENING HYDROCHLOROTHIAZIDE 25 MG TABLET TAKE 1 TABLET BY MOUTH IN THE MORNING NYSTATIN 100,000 UNIT/GRAM CREAM Apply to area(s) 2 (two) times daily. NYSTATIN 100,000 UNIT/GRAM POWDER Apply to area(s) 2 (two) times daily. OXYBUTYNIN 15 MG 24 HR TABLET TAKE 1 TABLET BY MOUTH IN THE MORNING ROSUVASTATIN 10 MG TABLET TAKE 1 TABLET BY MOUTH AT BEDTIME TERBINAFINE HCL 250 MG TABLET Take 1 tablet by mouth in the morning. START taking Modified Medications as Prescribed No medications on file STOP taking these medications No medications on file Follow-up: Electronically signed by: Shelly Acosta DO 12/02/24 0818 T [facility] 2024-11-25 09:11:41 Follow up appt scheduled for 12/09/24. Aneta Stewart RN [facility] 2024-11-25 08:24:46 Please move apt for 2 weeks from now [facility] 2024-11-24 11:07:00 Regarding: broken out and dizzy from meds ----- Message from Patient Physician Assistant Surgery sent at 11/24/2024 11:07 AM CDT ----- Pt states started meds last night, face is red, warm to touch, broken out and is dizzy TERT Tania Raza RN [facility] 2024-11-24 11:07:00 Nurse's Note: 11:11 AM Megan Gonzalez is a 79 year old female. Called patient. Identification verified by two patient identifiers (name and date of ). "I started taking a steroid pack yesterday. I took all of yesterday and I got up this morning and took one. My cheeks are red and kind of warm to the touch and I'm feeling a little bit dizzy. I'm wanting to know if that's a reaction and if I need to do anything?" Adult Triage Assessment Last Clinic Visit: 11/22/24 with PCP for facial pain and cervicalgia Primary Symptom: dizziness Onset / Duration: when she woke up this morning Location / Description: neuro Pain / Severity: 0/10 Associated Symptoms: red, warm cheeks Fever / Method: denies, thermometer needs a new battery Hydration: no changes to usual self Treatment so far: none Effect on ADL's: slight change LMP: n/a Pre-existing condition / Immunocompromised: htn Reason for Disposition Taking a medicine that could cause dizziness (e.g., blood pressure medications, diuretics) Protocols used: Dizziness - [id number] Disposition: After assessment, triage, and protocol review, patient advised to follow up with provider within 24 hours and informed would send message to clinic for review and follow up. Patient given strong ED precautions for any worsening symptoms. Patient verbalized understanding. Tania Raza DNP, RN, [facility] 11/24/24 11:21 AM [facility] 2024-11-24 11:07:00 Spoke with pt she is feeling better today. Will continue to hold on steroid meds. She will try Tylenol arthritis and Nsaids PRN. She has follow up in 2 weeks will plan to follow up then [facility] 2024-11-20 17:38:11 Refilled Last office visit: 11/04/24 Next office visit: 02/06/25 Requested Prescriptions Pending Prescriptions Disp Refills HYDROCHLOROTHIAZIDE 25 mg tablet [Pharmacy Med Name: HYDROCHLOROTHIAZIDE 25MG TABLETS] 90 tablet 1 Sig: TAKE 1 TABLET BY MOUTH IN THE MORNING Last refill date: 05/11/24 Labs: K (mmol/L) Date Value 11/07/2024 4.4 CREATININE (mg/dL) Date Value 11/07/2024 0.70 Recent Labs 11/07/24 0734 NA 139 Notes: The encounter diagnosis was Essential hypertension. Fabienne Martin LVN [facility] 2024-11-18 10:33:29 Noted in previous encounter from 11/11. Duyen Dasilva LVN [facility] 2024-11-18 10:28:32 Megan Gonzalez is a 79 year old female and the pt is calling to let Nurse Suman know that she did not warehouse order picker the following medication because she is no longer taking it. TIZANIDINE 2 mg tablet Please contact and advise. HERT Khushboo Pablo [facility] 2024-11-14 09:50:20 Spoke with pt. Pt states she will no longer take either medication because she feels better without them. Pain to neck is bearable with ice packs. Instructed pt about OTC pain relief if need or go to UC/ER if needed. Pt mostly concerned with toenail fungus. Is soaking feet 2x daily in baking soda and warm water and seems to help. HERT Duyen Dasilva MELTER CLERK [facility] 2024-11-12 16:53:47 Last Refilled: Disp Refills Start End MAMADOU tiZANidine 2 mg tablet 42 tablet 0 11/04/2024 -- -- Sig: Take 1 tablet by mouth every 6 (six) hours as needed for Pain (scale 4-6). Sent to pharmacy as: tiZANidine 2 mg tablet (ZANAFLEX) Class: eRX Route: Oral Order: [id number] Date/Time Signed: 11/04/2024 14:28 E-Prescribing Status: Receipt confirmed by pharmacy (11/04/2024 2:28 PM CDT) Notes: please review Recent Visits Date Type Provider Dept 11/04/24 Office Visit Aure Wood FNP [facility] 08/15/24 Office Visit Aure Wood, ASSISTANT TO THE CEO [facility] 06/10/24 Office Visit Aure Wood, ASSISTANT TO THE CEO [facility] 05/11/24 Office Visit Aure Wood, ASSISTANT TO THE CEO [facility] 01/18/24 Office Visit Aure Wood, ASSISTANT TO THE CEO [facility] 11/18/23 Office Visit Aure Wood, ASSISTANT TO THE CEO [facility] Showing recent visits within past 540 days with a meds authorizing provider and meeting all other requirements Future Appointments Date Type Provider Dept 02/06/25 Appointment Aure Wood ASSISTANT TO THE CEO [facility] Showing future appointments within next 150 days with a meds authorizing provider and meeting all other requirements Yaz Saucedo RN [facility] 2024-11-11 17:02:31 Terbinafine was likely what caused the diarrhea. If the tizandine was helping the neck pain and didn't have diarrhea till adding terbinafine on ,she can try Tizanadine again. Terbinafine can cause diarrhea T [facility] 2024-11-11 13:03:06 Spoke with Pt. Pt states she took the tizanidine between the - at noon for the first 3 days, but due to drowniness she changed it to 9pm the last two days. Took terbinafine at 9am. Duyen Dasilva LVN [facility] 2024-11-11 11:57:12 Did she take both a the same time or separate ? [facility] 2024-11-11 11:00:07 Returned call to patient: She states that she believes she is having a reaction to the medication she started 3 days ago. She states that it is the medications are: terbinafine HCL 250 mg tablet and tiZANidine 2 mg tablet. She states that she had diarrhea and started immediately amongst starting medications. She states that it has not "been bad" but it is still going on (last episode this morning). She states that she has history of allergies and hard to tell but felt as if her tongue felt bigger. She didn't think too much of it but felt it different. This morning she noticed that the swelling had gone down. She stopped both medications (last dose: 945p Tizanidine, yesterday AM terbinafine). She states she feels better right now. She states something was also making her feel jittery. Recommended to continue to hold doses until we speak to provider for further instructions. She verbalized understanding and agreed with plan of care. Maryam Maldonado RN [facility] 2024-11-11 09:06:16 Meagn Gonzalez is a 79 year old female and the pt is calling to request a call from the nurse about her current symptoms she is having. Pt states she started a new medication and it has upset her stomach and caused diarrhea. Wants to see what she needs to do. Name of the medication tiZANidine 2 mg tablet. Callback #: [phone] Please contact and advise. Khushboo Pablo [facility] 2024-11-07 07:30:00 Images from the original note were not included. Venipuncture collection performed by clean technique on the left anticubitus. Total of 1 attempts were made. Slight pressure and a bandage/dressing were applied to the site(s). The patient experienced no complications. The following specimens were processed according to instructions and sent to [facility] laboratories per lab order on 11/07/2024 : LT BLUE SST 1 RED LAV 1 PPT DK GREEN (LiHep) DK GREEN (SodH) DAWKINS DK BLUE (K2) DK BLUE (S) ACD Blood Culture NIPT/NTD [facility] 2024-10-04 14:34:13 Images from the original note were not included. Notes: 02/10/24 Last Refilled: [facility][id number] - [place], [place] - [address] [facility] [address] Recent Visits Date Type Provider Dept 08/15/24 Office Visit Aure Wood FNP [facility] 06/10/24 Office Visit Aure Wood FNP [facility] 05/11/24 Office Visit Aure Wood FNP [facility] 01/18/24 Office Visit Aure Wood FNP [facility] 11/18/23 Office Visit Aure Wood FNP [facility] Showing recent visits within past 540 days with a meds authorizing provider and meeting all other requirements Future Appointments Date Type Provider Dept 12/13/24 Appointment Aure Wood FNP [facility] Showing future appointments within next 150 days with a meds authorizing provider and meeting all other requirements Name from pharmacy: GABAPENTIN 100MG CAPSULES Will file in chart as: GABAPENTIN 100 mg capsule Sig: TAKE 1 CAPSULE BY MOUTH IN THE MORNING AND AT NOON AND IN THE EVENING Disp: 270 capsule Refills: 1 (Pharmacy requested: Not specified) Start: 10/04/2024 Class: eRX For: Arthralgia, unspecified joint Last ordered: 7 months ago (02/10/2024) by ANUPAM Schumacher Last refill: 07/07/2024 Rx #: [id number]|0|1 Neuropathic Pain Sonuxn5310/04/2024 10:26 AM Protocol Details Manual Review: Verify no changes in dose in the last 3 months Valid encounter within last 12 months Name from pharmacy: ROSUVASTATIN 10MG TABLETS Will file in chart as: ROSUVASTATIN 10 mg tablet Sig: Take 1 tablet by mouth at bedtime. Original sig: TAKE 1 TABLET BY MOUTH AT BEDTIME Disp: 90 tablet Refills: 1 (Pharmacy requested: Not specified) Start: 10/04/2024 Class: eRX For: Mild hypercholesterolemia Last ordered: 7 months ago (02/10/2024) by ANUPAM Schumacher Last refill: 07/07/2024 Rx #: [id number]|1|0|1 Cardiovascular: Antilipid - HMG-CoA Reductase Inhibitors Gqszxd8410/04/2024 10:26 AM Protocol Details Valid encounter within last 12 months Total Cholesterol within 360 days LDL within 360 days HDL within 360 days Triglycerides within 360 days AST in normal range and within 360 days ALT in normal range and within 360 days To be filled at: [facility] #[id number] [address] [facility] [address] [facility] [place] 2024-06-07 10:44:20 Images from the original note were not included. Last Refilled: Disp Refills Start End MAMADOU oxybutynin 15 mg 24 hr tablet 30 tablet 3 04/01/2024 -- -- Sig: Take 1 tablet by mouth in the morning. Sent to pharmacy as: oxyBUTYnin chloride ER 15 mg tablet,extended release 24 hr (DITROPAN XL) Class: eRX Route: Oral Order: [id number] Date/Time Signed: 04/01/2024 15:55 E-Prescribing Status: Receipt confirmed by pharmacy (04/01/2024 3:55 PM CDT) Notes: please review Urology: Overactive Bladder Wbetxx0806/07/2024 10:22 AM Protocol Details Overactive Bladder is on problem list Valid encounter within last 12 months Recent Visits Date Type Provider Dept 05/11/24 Office Visit Aure Wood FNP [facility] 01/18/24 Office Visit Aure Wood FNP [facility] 11/18/23 Office Visit Aure Wood FNP [facility] Showing recent visits within past 540 days with a meds authorizing provider and meeting all other requirements Future Appointments Date Type Provider Dept 06/10/24 Appointment Nina Aure, ASSISTANT TO THE CEO [facility] Showing future appointments within next 150 days with a meds authorizing provider and meeting all other requirements [facility] Yaz Saucedo RN [facility] 2024-05-23 10:33:24 Printed. SKYE JOHNSON RN 05/23/2024 10:33 AM ER CLIPPER HELPER Skye Johnson RN [facility] 2024-05-23 10:17:33 Noted. SKYE JOHNSON RN 05/23/2024 10:17 AM [facility] 2024-05-20 11:24:37 Images from the original note were not included. [facility] 2024-05-06 11:24:27 Pt informed: Disp Refills Start End MAMADOU nystatin 100,000 unit/gram powder 60 g 3 05/05/2024 -- No Sig: Apply to area(s) 2 (two) times daily. Sent to pharmacy as: nystatin 100,000 unit/gram topical powder (NYSTOP) Class: eRX Route: Topical Order: [id number] Date/Time Signed: 05/05/2024 11:29 E-Prescribing Status: Receipt confirmed by pharmacy (05/05/2024 11:29 AM VENEER CLIPPER HELPER) [facility] Dana Sunshine MA [facility] 2024-05-06 10:32:52 Megan Gonzalez is a 79 year old female calling to speak with nurse to clarify if the patient should be using the powder medication only one day, or if she needs to use powder and cream twice a day. Please advise. ER CLIPPER HELPER Denver Peguero [facility] 2024-05-04 11:01:35 Images from the original note were not included. Notes: Last Refilled: Name from pharmacy: ATENOLOL 25MG TABLETS Will file in chart as: ATENOLOL 25 mg tablet Sig: TAKE 1/2 TABLET BY MOUTH IN THE MORNING Disp: 45 tablet Refills: 0 (Pharmacy requested: Not specified) Start: 05/04/2024 Class: eRX Last ordered: 3 months ago (02/02/2024) by ANUPAM Schumacher Last refill: 02/02/2024 Rx #: [id number]|1|0|1 Cardiovascular: Beta Blockers Fkpibu1505/04/2024 10:40 AM Protocol Details Valid encounter within last 12 months Heart rate within normal limits and completed in the last 12 months To be filled at: [id number] [address] [facility] Recent Visits Date Type Provider Dept 01/18/24 Office Visit Aure Wood FNP [facility] 11/18/23 Office Visit Aure Wood FNP [facility] Showing recent visits within past 540 days with a meds authorizing provider and meeting all other requirements Future Appointments Date Type Provider Dept 05/11/24 Appointment Aure Wood FNP [facility] Showing future appointments within next 150 days with a meds authorizing provider and meeting all other requirements A Jaffe MA [facility] 2024-02-10 15:47:53 Addended by: AURE WOOD on: 02/10/2024 03:47 PM Modules accepted: Orders T [facility] 2024-02-10 15:47:46 Refill sent [facility] 2024-02-10 14:32:06 Patient informed, stated she would set up my chart T [facility] 2024-02-10 14:31:05 Pt stated she will bring bottled medication next encounter. Takes 100mg didier 3 times daily for joint pain. Has been on it for about 4 years [facility] 2024-02-10 14:03:08 Statin refilled , please call pharm on Didier to see if hx of med and what she is taking it for [facility] 2024-02-10 13:36:33 Pt also requesting gabapentin, not on medication management to pend. [facility] 2024-02-10 13:20:16 Megan Gonzalez is a 78 year old female that is requesting refills for new prescriptions from Ms. Wood. Please see below: gabapentin 100 mg capsules 3 times per day rosuvastatin 10 mg tablets 1 time per day Please advise. [id number] [place] [facility] [address] [facility] [address] [facility] [id number] Barby Dobbs [facility] [place] 2024-02-08 13:32:01 Pt is returning a call. She got a letter stating the office could not reach her. Confirmed CB#---[phone] Please Advise. Lynda Evangelista [facility] [place] 2024-02-02 11:06:35 Images from the original note were not included. Last order date 2017 Notes: 05/26/18 Last Refilled: [facility] #[id number] - [place], [place] - [address] AT [facility] [employer] Recent Visits Date Type Provider Dept 01/18/24 Office Visit Aure Wood FNP [facility] 11/18/23 Office Visit Aure Wood FNP [facility] Showing recent visits within past 540 days with a meds authorizing provider and meeting all other requirements Future Appointments Date Type Provider Dept 04/20/24 Appointment Aure Wood FNP [facility] Showing future appointments within next 150 days with a meds authorizing provider and meeting all other requirements atenoloL 25 mg tablet Sig: Take 0.5 tablets by mouth in the morning. Disp: 45 tablet Refills: 10 Start: 02/02/2024 Class: eRX Last ordered: 5 years ago (05/26/2018) by Ad Clemons MD Cardiovascular: Beta Blockers Fprfrh2902/02/2024 10:52 AM Protocol Details Valid encounter within last 12 months Heart rate within normal limits and completed in the last 12 months To be filled at: [facility] #[id number] - [place], [place] - [address] [facility] [employer] [facility] [place] 2024-01-18 14:00:00 Images from the original note were not included. Venipuncture collection performed by clean technique on the right anticubitus. Total of 1 attempts were made. Slight pressure and a bandage/dressing were applied to the site(s). The patient experienced no complications. The following specimens were processed according to instructions and sent to [facility] laboratories per lab order on 01/18/2024 : LT BLUE SST 2 RED LAV 1 PPT DK GREEN (LiHep) DK GREEN (SodH) DAWKINS DK BLUE (K2) DK BLUE (S) ACD Blood Culture NIPT/NTD Breath test completed [facility] 2024-01-18 14:00:00 Addended by: MAYDA WILSON on: 01/19/2024 06:50 AM Modules accepted: Orders Mayda Wilson [facility] 2023-12-21 11:26:49 Left with callback number notifying patient that forms/RX are available for warehouse order picker. Fabienne Martin MELTER CLERK [facility] 2023-12-18 16:43:18 Order was placed that day in office, will reprint order Gave to Fabienne [facility] 2023-12-17 16:32:39 Patient needing RX for handicap placard. Form placed in Providers inbox for review. 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 I have put it in [place] box. Agudea Oglesby [facility] 2023-12-08 11:18:47 Oxybutin 15mg once daily. not currently active Pt stated last fill was in [place], active for over a year. Dr. Joaquin savage Dx overactive bladder. Dispensed 06/06/2023 Written 03/09/2023 Please advise. Pt states she has enough for 3 days and has follow up December [facility] 2023-12-08 11:05:29 Megan Gonzalez is a 78 year old female Patient called stating she needs a refill of Oxybutynin. Please contact [phone] (home) [id number] [facility] [address] Vijay Boyce [facility] 2023-11-19 14:54:16 Megan Gonzalez is a 78 year old female patient requesting call back to go over referral and appointment. States she has an appointment in 4 months with a [facility] channel development director in [place]. Mahendra Cardoza [facility]
[2025-02-06 05:20] LABS: Absolute Lymphocytes (CBC) 1.0 K/uL (0.7-4.9); Hematocrit 35.7 % (36.0-45.0); Hemoglobin 12.3 g/dL (12.0-15.0); MCH 29.2 pg (27.0-35.0); MCHC 34.5 g/dL (32.0-36.0); MCV 84.6 fL (80-100); MPV 7.4 fL (7.6-11.3); Nucleated RBC Absolute Count 0.0 (0-0); Nucleated Red Blood Cells % 0.0 % (0-0); RBC Red Blood Cell Count 4.22 M/uL (3.86-4.86); White Blood Count 5.60 thou/uL (4.3-10.9)
[2025-02-06 05:40] LABS: Anion Gap 10.1 mEq/L (5.0-15.0); BUN Blood Urea Nitrogen 6.0 mg/dL (7-18); Glucose Level 113.0 mg/dL (74-106); Potassium 3.1 mEq/L (3.5-5.1); Troponin High Sensitivity 9.1 pg/mL (<58.9)
[2025-02-06 06:03] LABS: Influenza A Ag Negative; Influenza B Ag Negative; SARS-CoV-2 Antigen Rapid Res Negative (Negative)
[2025-02-06] MEDS ORDERED: IPRATROPIUM BROM 0.5MG/2.5ML ONE (06:06)
[2025-02-06] MEDS ORDERED: ALBUTEROL 2.5 MG/3 ML NEB SOL ONE (06:06)
--- NOTE | 2025-02-06 06:08 | EDPHYS ---
Physician Documentation [facility] Name: Megan Sosa Age: 79 yrs Sex: Female : 1945 Arrival Date: 02/06/2025 Time: 04:44 Bed 18 Private MD: ED Physician Francis Shea HPI: 02/06 05:55 This 79 yrs old Female presents to ER via Ambulatory with complaints of Wheezing > 1 sp3 Year, Dry mouth, shaking, Weakness. 05:55 79-year-old female with history of hypertension now presents to the ED for chief sp3 complaint shaking, generalized weakness, dry mouth and cough. Patient is concerned about having a respiratory infection. She denies any headache, neck pain, chest pain, shortness of breath, abdominal pain, nausea, vomiting, diarrhea, syncope, near syncope, known sick contacts, travel history, rash, bleeding, or any other signs or symptoms on ROS at this time.. Historical: - Allergies: 05:17 Amoxicillin; cc6 05:17 TERBINAFINE; cc6 05:17 Tizanidine; cc6 - Home Meds: 05:17 aspirin 81 mg Oral tablet [Active]; atenolol 25 mg Oral tablet 0.5 tab daily [Active]; cc6 famotidine 20 mg Oral tablet [Active]; gabapentin 100 mg oral tablet 3 tabs daily [Active]; hydrochlorothiazide 25 mg Oral tablet 1 tabs [Active]; oxybutynin chloride 15 mg Oral Tablet, Extended Release 24 hr [Active]; rosuvastatin 10 mg oral tablet 1 tab [Active]; - PMHx: 05:17 Hypertensive disorder; cc6 - PSHx: 05:17 hip replacement; cc6 - Immunization history:: Adult Immunizations up to date. - Infectious Disease History:: Denies. - Social history:: Smoking status: Patient denies any tobacco usage or history of. ROS: 05:56 Constitutional: Negative for fever, chills, and weight loss, Eyes: Negative for injury, sp3 pain, redness, and discharge, Neck: Negative for injury, pain, and swelling, Cardiovascular: Negative for chest pain, palpitations, and edema, Abdomen/GI: Negative for abdominal pain, nausea, vomiting, diarrhea, and constipation, Back: Negative for injury and pain, MS/Extremity: Negative for injury and deformity, Skin: Negative for injury, rash, and discoloration, Neuro: Negative for headache, weakness, numbness, tingling, and seizure, Psych: Negative for depression, anxiety, suicide ideation, homicidal ideation, and hallucinations, Allergy/Immunology: Negative for hives, rash, and allergies, Endocrine: Negative for neck swelling, polydipsia, polyuria, polyphagia, and marked weight changes, Hematologic/Lymphatic: Negative for swollen nodes, abnormal bleeding, and unusual bruising, 05:56 All other systems are negative, Exam: 05:56 Constitutional: This is a well developed, well nourished patient who is awake, alert, sp3 and in no acute distress. Head/Face: Normocephalic, atraumatic. Eyes: Pupils equal round and reactive to light, extra-ocular motions intact. Lids and lashes normal. Conjunctiva and sclera are non-icteric and not injected. Cornea within normal limits. Periorbital areas with no swelling, redness, or edema. ENT: Nares patent. No nasal discharge, no septal abnormalities noted. External auditory canals are clear. Oropharynx with no redness, swelling, or masses, exudates, or evidence of obstruction, uvula midline. Mucous membranes moist. Neck: Trachea midline, no thyromegaly or masses palpated, and no cervical lymphadenopathy. Supple, full range of motion without nuchal rigidity, or vertebral point tenderness. No Meningismus. Chest/axilla: Normal chest wall appearance and motion. Nontender with no deformity. No lesions are appreciated. Cardiovascular: Regular rate and rhythm with a normal S1 and S2. No gallops, murmurs, or rubs. Normal PMI, no JVD. No pulse deficits. Respiratory: Lungs have equal breath sounds bilaterally, clear to auscultation and percussion. No rales, rhonchi or wheezes noted. No increased work of breathing, no retractions or nasal flaring. Abdomen/GI: Soft, non-tender, with normal bowel sounds. No distension or tympany. No guarding or rebound. No evidence of tenderness throughout. Back: No spinal tenderness. No costovertebral tenderness. Full range of motion. Skin: Warm, dry with normal turgor. Normal color with no rashes, no lesions, and no evidence of cellulitis. MS/ Extremity: Pulses equal, no cyanosis. Neurovascular intact. Full, normal range of motion. Neuro: Awake and alert, GCS 15, oriented to person, place, time, and situation. Cranial nerves II-XII grossly intact. Motor strength 5/5 in all extremities. Sensory grossly intact. Cerebellar exam normal. Normal gait. Psych: Awake, alert, with orientation to person, place and time. Behavior, mood, and affect are within normal limits. 05:56 Respiratory: Scattered wheeze noted. Patient in no acute distress whatsoever. 100% pulse oxygenation on room air. Respiratory rate is 16., 05:56 ECG was reviewed by the Attending Physician. EKG demonstrates normal sinus rhythm at 70 sp3 bpm with normal intervals except first-degree AV block with NV interval 208, normal axis, normal QRS and nonspecific diffuse ST/T changes without evidence of acute ischemia. Vital Signs: 04:54 BP 144 / 112; Pulse 86; Resp 16; Temp 98.1(O); Pulse Ox 100% on R/A; Weight 71.21 kg; cc6 Height 5 ft. 1 in. ; Pain 4/10; 05:56 BP 156 / 92; Pulse 75; Resp 25; Pulse Ox 100% on R/A; cc6 06:48 BP 149 / 58; Pulse 83; Resp 16; Pulse Ox 100% on Nebulizer Mask; cc6 04:54 Body Mass Index 29.66 (71.21 kg, 154.94 cm) cc6 04:54 Pain Scale: Adult cc6 MDM: 05:16 Medical Screening Exam initiated sp3 06:05 Data reviewed: vital signs, nurses notes, lab test result(s), EKG, radiologic studies. sp3 ED course: 79-year-old female with PMH above now with mild cough and weakness concern for respiratory illness. Differential diagnosis includes viral illness, COVID-19, influenza, bronchitis, pneumonia, and to lesser degree ACS or other pathology. Chest x-ray demonstrates no abnormality. Viral swabs are negative and labs are normal including troponin Vital signs are normal. Will safely discharge patient home on MDI inhaler.. 02/06 05:02 Order name: Basic Metabolic Panel; Complete Time: 05:53 ha1 02/06 05:02 Order name: CBC with Diff; Complete Time: 05:53 ha1 02/06 05:02 Order name: Troponin HS; Complete Time: 05:53 ha1 02/06 05:02 Order name: COVID-19 Ag + Flu A+B Ag; Complete Time: 06:04 02/06 05:02 Order name: XRAY Chest (1 view) 02/06 05:02 Order name: EKG; Complete Time: 05:02 02/06 05:02 Order name: Cardiac monitoring; Complete Time: 05:40 02/06 05:02 Order name: EKG - Nurse/Tech; Complete Time: 05:40 02/06 05:02 Order name: IV Saline Lock; Complete Time: 05:40 02/06 05:02 Order name: Labs collected and sent; Complete Time: 05:40 02/06 05:02 Order name: O2 Per Protocol; Complete Time: 05:40 02/06 05:02 Order name: O2 Sat Monitoring; Complete Time: 05:40 ha Administered Medications: 06:12 Drug: DuoNeb Nebulize (3:1) (2.5 mg - 0.5 mg) 3 ml Nebulizer once Route: Nebulizer; [facility] 06:50 Follow up: Response: No adverse reaction cc6 Disposition Summary: 02/06/25 06:07 Discharge Ordered Notes: Location: Home sp3 Condition: Stable sp3 Diagnosis - Bronchitis sp3 Followup: sp3 - With: Private Physician - When: Upon discharge from the Emergency Department - Reason: Continuance of care Discharge Instructions: - Discharge Summary Sheet sp3 - Acute Bronchitis, Adult sp3 Forms: - Medication Reconciliation Form sp3 - Antibiotic Education sp3 - Prescription Opioid Use sp3 - Patient Portal Instructions sp3 - Leadership Thank You Letter sp3 Prescriptions: - albuterol sulfate 90 mcg/actuation Inhalation HFA Aerosol Inhaler - inhale 2 puff INHALATION route every 4 to 6 hours as needed for shortness of sp3 breath or wheezing; 1 Each; Refills: 0, Product Selection Permitted - Prednisone 20 mg Oral Tablet - take 2 tablets ORAL route once daily for 5 days; 10 tablet; Refills: 0, Product sp3 Selection Permitted Signatures: Dispatcher [employer] Francis Moreno MD MD sp3 Ainsley Elizabeth RN RN ha1 Mercedez Roth RN RN cc6 Corrections: (The following items were deleted from the chart) 05:27 05:17 PMHx: Diabetes mellitus; cc6 cc6
--- NOTE | 2025-02-06 06:08 | ER ---
Nurse's Notes [facility] Name: Megan Sosa Age: 79 yrs Sex: Female : 1945 Arrival Date: 02/06/2025 Time: 04:44 Bed 18 Private MD: Diagnosis: Bronchitis Presentation: 02/06 04:54 Chief complaint: Patient states: wheezing, dry mouth, chest pressure, reflux, feeling cc6 weak that started at 209902/05/25. 04:54 Method Of Arrival: Ambulatory cc6 04:54 Coronavirus screen: Client denies travel out of the [place] in the last 14 days. Ebola cc6 Screen: No symptoms or risks identified at this time. Initial Sepsis Screen: Does the patient meet any 2 criteria? No. Patient's initial sepsis screen is negative. Does the patient have a suspected source of infection? No. Patient's initial sepsis screen is negative. Risk Assessment: Do you want to hurt yourself or someone else? Patient reports no desire to harm self or others. Onset of symptoms was February 05, 2025 at 21:00. 04:54 Acuity: TAYO 3 cc6 Triage Assessment: 05:17 General: Appears comfortable, Behavior is calm, cooperative. Pain: Complains of pain in cc6 mid-sternal area Pain does not radiate. Pain currently is 4 out of 10 on a pain scale. Quality of pain is described as pressure, Pain began started at 209902/05/2025. Neuro: Level of Consciousness is awake, alert, obeys commands, Oriented to person, place, time, situation. Cardiovascular: Patient's skin is warm and dry. Respiratory: Reports wheezing Airway is patent Respiratory effort is even, unlabored, Respiratory pattern is regular, symmetrical, Onset: The symptoms/episode began/occurred yesterday, the patient has mild shortness of breath. GI: Abdomen is round. : No signs and/or symptoms were reported regarding the genitourinary system. Derm: Skin is dry, Skin is pink, warm \T\ dry. normal. Musculoskeletal: Circulation, motion, and sensation intact. Range of motion: intact in all extremities. Historical: - Allergies: 05:17 Amoxicillin; cc6 05:17 TERBINAFINE; cc6 05:17 Tizanidine; cc6 - Home Meds: 05:17 aspirin 81 mg Oral tablet [Active]; atenolol 25 mg Oral tablet 0.5 tab daily [Active]; cc6 famotidine 20 mg Oral tablet [Active]; gabapentin 100 mg oral tablet 3 tabs daily [Active]; hydrochlorothiazide 25 mg Oral tablet 1 tabs [Active]; oxybutynin chloride 15 mg Oral Tablet, Extended Release 24 hr [Active]; rosuvastatin 10 mg oral tablet 1 tab [Active]; - PMHx: 05:17 Hypertensive disorder; cc6 - PSHx: 05:17 hip replacement; cc6 - Immunization history:: Adult Immunizations up to date. - Infectious Disease History:: Denies. - Social history:: Smoking status: Patient denies any tobacco usage or history of. Screenin:00 [facility] ED Fall Risk Assessment (Adult) History of falling in the last 3 months, ha1 including since admission No falls in past 3 months (0 pts) Confusion or Disorientation No (0 pts) Intoxicated or Sedated No (0 pts) Impaired Gait Yes (1 pt) Mobility Assist Device Used Yes (1 pt) Altered Elimination No (0 pt) Score/Fall Risk Level 3 or more points = High Risk Oriented to surroundings, Maintained a safe environment, Educated pt \T\ family on fall prevention, incl call for assistance when getting out of bed, Hourly rounding (assess needs \T\ fall precautionary measures) done. Abuse screen: Denies threats or abuse. Denies injuries from another. Nutritional screening: No deficits noted. Tuberculosis screening: No symptoms or risk factors identified. Assessment: 04:54 General: SEE TRIAGE ASSESSMENT. cc6 06:00 Reassessment: Patient and/or family updated on plan of care and expected duration. Pain ha1 level reassessed. 06:00 Cardiovascular: Rhythm is regular. Respiratory: Airway is patent Respiratory effort is ha1 even, unlabored, Respiratory pattern is regular, symmetrical, Breath sounds are clear bilaterally. 07:01 Reassessment: Patient and/or family updated on plan of care and expected duration. Pain ha1 level reassessed. Patient is alert, oriented x 3, equal unlabored respirations, skin warm/dry/pink. Patient denies pain at this time. Patient states feeling better. Patient states symptoms have improved. Vital Signs: 04:54 BP 144 / 112; Pulse 86; Resp 16; Temp 98.1(O); Pulse Ox 100% on R/A; Weight 71.21 kg; cc6 Height 5 ft. 1 in. ; Pain 4/10; 05:56 BP 156 / 92; Pulse 75; Resp 25; Pulse Ox 100% on R/A; cc6 06:48 BP 149 / 58; Pulse 83; Resp 16; Pulse Ox 100% on Nebulizer Mask; cc6 04:54 Body Mass Index 29.66 (71.21 kg, 154.94 cm) cc6 04:54 Pain Scale: Adult [facility] ED Course: 04:44 Patient arrived in ED. jj6 04:54 Patient has correct armband on for positive identification. Bed in low position. Call ha1 light in reach. Side rails up X 1. 04:54 Provided Education on: plan of care . ha1 04:55 Mercedez Roth, RN is Primary Nurse. cc6 05:01 Francis Shea MD is Attending Physician. ha1 05:10 Inserted saline lock: 20 gauge in left antecubital area, using aseptic technique. Blood ha1 collected. Flushed with 10 mL NS. 05:17 Triage completed. cc6 05:17 Arm band placed on right wrist. cc6 05:40 XRAY Chest (1 view) Sent. cc6 05:51 XRAY Chest (1 view) In Process Unspecified. EDMS 07:01 No provider procedures requiring assistance completed. IV discontinued, intact, ha1 bleeding controlled, No redness/swelling at site. Pressure dressing applied. Administered Medications: 06:12 Drug: DuoNeb Nebulize (3:1) (2.5 mg - 0.5 mg) 3 ml Nebulizer once Route: Nebulizer; ha1 06:50 Follow up: Response: No adverse reaction cc6 Medication: 06:23 VIS not applicable for this client. ha1 Outcome: 06:07 Discharge ordered by . sp3 07:02 Discharged to home ambulatory, with family, ha1 07:02 Condition: stable 07:02 Discharge instructions given to patient, family, Instructed on discharge instructions, follow up and referral plans. medication usage, Demonstrated understanding of instructions, follow-up care, medications, Prescriptions given X 2, 07:04 Patient left the ED. ha1 Signatures: Dispatcher [employer] EDVT Francis Shea MD MD sp3 Ashely Henderson jj6 Ainsley Elizabeth, RN RN ha1 Mercedez Roth RN RN cc6 Corrections: (The following items were deleted from the chart) 05:27 05:17 PMHx: Diabetes mellitus; cc6 cc6
--- NOTE | 2025-02-06 07:35 | RAD REPORT ---
EXAM DESCRIPTION: X-ray single view chest. CLINICAL HISTORY: 79 years Female, COUGH COMPARISON: None. TECHNIQUE: Single portable x-ray view of the chest performed on 02/06/2025 at 5:42 AM FINDINGS: The lungs are well expanded and are clear. There is no evidence of a pneumothorax. The cardiac silhouette is normal in size and configuration. The mediastinal contours are normal. No acute osseous abnormality is identified. 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 There is m ild degenerative spondylosis throughout the thoracic spine. No focal soft tissue abnormalities are seen. Lines and tubes: None. Free air: None identified, IMPRESSION: No evidence of acute intrathoracic disease. Electronically signed by: Quita Burris DO 02/06/2025 06:26 AM CDT Due to temporary technical issues with the PACS/[employer] reporting system, reports are being shahana d by the in-house radiologist without review as a courtesy to ensure prompt reporting the interpreting radiologist is fully responsible for the content of the report. Transcribed Date/Time: 02/06/2025 7:35 AM
[2025-02-06 12:23] VITALS: O2SAT 100
[2025-02-06 12:25] VITALS: TEMP 98.1
[2025-02-06 12:27] VITALS: BP 149/58
== END 2025-02-06 07:04 | disposition home or self-care (01) ==
LOC: ER 04:44
DX: J40 Bronchitis, not specified as acute or chronic (principal); Z11.52 Encounter for screening for COVID-19; I10 Essential (primary) hypertension; Z79.82 Long term (current) use of aspirin
CPT/HCPCS: 93005; 85025; 80048; 36415; 84484; 71045; 99284; 87428; J7613; J7644